=== PATIENT | male | born 1950 | race African-American/Black ===

== ENCOUNTER 2017-06-23 12:41 | Emergency (ER) | payer MEDICARE, MEDICAID ==
[~2017-06-23] VITALS: Ht 172.7 cm; Wt 101.0 kg
[~2017-06-23 12:41] MED LIST: ASPI-1159 PO; ATEN100T PO; ATOR40TA70 PO; CHOL100046 PO; FLUT1DIS IH; HYDR25TA PO; LOSA25TA12 PO
[2017-06-23 12:46] VITALS: BP 137/112
== END 2017-06-23 16:04 | disposition left against medical advice (07) ==
LOC: ER 12:55
DX: Z53.21 Procedure and treatment not carried out due to patient leaving prior to being seen by health care provider (principal)

== ENCOUNTER 2021-09-23 10:37 | Emergency (ER) | payer MEDICARE, OTHER ==
[~2021-09-23] VITALS: Ht 172.7 cm; Wt 107.0 kg
[~2021-09-23 10:37] MED LIST changes: -ASPI-1159 PO; +ASPI-1497 PO; -LOSA25TA12 PO; +LOSA25TA26 PO
[2021-09-23 11:16] LABS: BASOPHILS % 1.1 % (0.0-2.0); EOSINOPHILS % 1.7 % (0.0-5.0); HEMATOCRIT. 47.8 % (42.0-52.0); HEMOGLOBIN. 15.8 g/dL (14.0-18.0); LYMPHOCYTES % 27.9 % (20.0-50.0); MEAN CORPUSCULAR HEMOGLOBIN 32.5 pg (28.0-32.0); MEAN CORPUSCULAR VOLUME 98.3 fL (80.0-94.0); MEAN PLATELET VOLUME 8.7 fl (7.4-10.4); MONOCYTES % 9.3 % (2.0-8.0); PLATELET 227 x1000/uL (130-400); RED BLOOD CELL COUNT 4.87 mill/uL (4.7-6.1); RED CELL DISTRIBUTION WIDTH 14.1 % (11.6-14.6)
[2021-09-23 11:40] LABS: CHLORIDE 108 mEq/L (98-107)
[2021-09-23] MEDS ORDERED: ASPIRIN 81MG TABLET PO ONE (13:45)
[2021-09-23] MEDS ORDERED: NITROGLYCERIN 0.4MG TABLET SL SL PRN (13:45)
[2021-09-23 15:19] VITALS: BP 175/88
== END 2021-09-23 15:20 | disposition home or self-care (01) ==
LOC: ER 10:37
DX: R07.9 Chest pain, unspecified (principal); J44.9 Chronic obstructive pulmonary disease, unspecified; I11.0 Hypertensive heart disease with heart failure; I50.9 Heart failure, unspecified; E78.00 Pure hypercholesterolemia, unspecified; Z88.0 Allergy status to penicillin
CPT/HCPCS: 36415; 71045; 80053; 83880; 84484; 85025; 93005; 99285

== ENCOUNTER 2023-05-04 10:05 | Emergency (ER) | payer MEDICARE, OTHER ==
[~2023-05-04] VITALS: Ht 172.7 cm; Wt 104.0 kg
[2023-05-04 10:11] VITALS: BP 173/107; O2SAT 98
[2023-05-04] MEDS ORDERED: HYDROCODONE/ACETAMINOPHEN 5/325MG TABLET PO ONE (10:30)
[2023-05-04] MEDS ORDERED: KETOROLAC 30MG/ML VIAL IM ONE (10:45)
[2023-05-04] MEDS ORDERED: LIDO700A15 TP (10:46)
[2023-05-04] MEDS ORDERED: NAPR-1176 MT (10:46)
[2023-05-04] MEDS ORDERED: KETOROLAC 60MG/2ML VIAL IM NR (11:45)
[2023-05-04 12:14] VITALS: PULSE 99; RESP 16; TEMP 98.8
[2023-05-04] MEDS ORDERED: ACETAMINOPHEN 325MG TABLET PO ONE (12:15)
== END 2023-05-04 11:28 | disposition home or self-care (01) ==
LOC: ER 10:25
DX: M54.50 Low back pain, unspecified (principal); E78.00 Pure hypercholesterolemia, unspecified; I11.0 Hypertensive heart disease with heart failure; I50.9 Heart failure, unspecified; Z88.0 Allergy status to penicillin
CPT/HCPCS: 99283; J1885

== ENCOUNTER 2023-06-08 10:54 | Emergency (ER) | payer MEDICARE, OTHER ==
[~2023-06-08] VITALS: Ht 172.7 cm; Wt 105.0 kg
[~2023-06-08 10:54] MED LIST changes: +LIDO700A15 TP; +NAPR-1176 MT
[2023-06-08 11:04] VITALS: O2SAT 98
[2023-06-08 11:39] LABS: BASOPHILS % 1.1 % (0.0-2.0); DIFFERENTIAL COMMENT 0; EOSINOPHILS % 0.7 % (0.0-5.0); HEMATOCRIT. 46.1 % (42.0-52.0); HEMOGLOBIN. 15.5 g/dL (14.0-18.0); LYMPHOCYTES % 23.1 % (20.0-50.0); MEAN CORPUSCULAR HGB CONC 33.6 g/dL (31.0-37.0); MEAN CORPUSCULAR VOLUME 100.9 fL (80.0-94.0); MEAN PLATELET VOLUME 8.3 fl (7.4-10.4); MONOCYTES % 9.7 % (2.0-8.0); NEUTROPHILS % 65.4 % (40.0-76.0); PLATELET 242 x1000/uL (130-400); RED BLOOD CELL COUNT 4.56 mill/uL (4.7-6.1); RED CELL DISTRIBUTION WIDTH 13.8 % (11.6-14.6); WHITE BLOOD COUNT 5.8 x1000/uL (4.5-11.0)
[2023-06-08 11:50] LABS: ALANINE AMINOTRANSFERASE 25 IU/L (10-49); ALBUMIN 4.5 g/dL (3.2-4.8); ASPARTATE AMINOTRANSFERASE 16 IU/L (<34); BILIRUBIN TOTAL 1.9 mg/dL (0.1-1.0); CALCIUM 9.4 mg/dL (8.7-10.4); CARBON DIOXIDE 28 mEq/L (21-32); CHLORIDE 104 mEq/L (98-107); GLUCOSE 103 mg/dL (70-105); POTASSIUM 3.7 mEq/L (3.5-5.1); SODIUM 138 mEq/L (136-145); TROPONIN I HIGH SENSITIVITY 8 ng/L (3.0-53); UREA NITROGEN BLOOD 13 mg/dL (9-23)
[2023-06-08 11:55] LABS: PROTHROMBIN TIME 11.4 sec (9.6-11.0)
[2023-06-08 14:19] LABS: TROPONIN I HIGH SENSITIVITY 10 ng/L (3.0-53)
[2023-06-08 15:53] VITALS: BP 146/68; PULSE 84; RESP 19; TEMP 98.3
== END 2023-06-08 15:55 | disposition home or self-care (01) ==
LOC: ER 10:54
DX: R07.89 Other chest pain (principal); E11.9 Type 2 diabetes mellitus without complications; I11.0 Hypertensive heart disease with heart failure; I50.9 Heart failure, unspecified; Z88.0 Allergy status to penicillin; J44.1 Chronic obstructive pulmonary disease with (acute) exacerbation; E78.00 Pure hypercholesterolemia, unspecified
CPT/HCPCS: 36415; 71045; 80053; 83880; 84484; 85025; 93005; 99285

== ENCOUNTER 2024-03-26 09:33 | Emergency (ER) | payer MEDICARE, OTHER ==
[~2024-03-26] VITALS: Ht 172.7 cm; Wt 100.2 kg
[2024-03-26 09:45] VITALS: O2SAT 99
[2024-03-26 09:47] VITALS: BP 176/87; PULSE 89; RESP 15; TEMP 99; O2SAT 98
[2024-03-26] MEDS ORDERED: TOPUD MT (10:30)
[2024-03-26] MEDS ORDERED: LIDO700A30 TP (10:30)
[2024-03-26] MEDS: LIDOCAINE 5% PATCH TOP SCH (10:58)
[2024-03-26] MEDS: NAPROXEN 375MG TABLET PO ONE (10:58)
== END 2024-03-26 12:35 | disposition home or self-care (01) ==
LOC: ER 09:33
DX: M79.661 Pain in right lower leg (principal); E11.9 Type 2 diabetes mellitus without complications; I10 Essential (primary) hypertension; Z88.0 Allergy status to penicillin; Z79.899 Other long term (current) drug therapy
CPT/HCPCS: 73590; 93971; 99284